=== PATIENT | male | born 1990 | race African-American/Black ===

== ENCOUNTER 2022-04-26 11:30 | Emergency (ER) | payer SELFPAY ==
[2022-04-26] MEDS ORDERED: dexAMETHasone 10 MG/ML VIAL ONE (12:11)
[2022-04-26] MEDS ORDERED: HYDROCODONE/APAP 10/325 TAB ONE (12:12)
[2022-04-26] MEDS ORDERED: KETOROLAC 30 MG/ML INJ ONE (12:12)
--- NOTE | 2022-04-26 12:53 | RAD REPORT ---
EXAM DESCRIPTION: RAD - Lumbar Spine 3 Views - 04/26/2022 12:47 pm CLINICAL HISTORY: Back pain FINDINGS: No fracture or dislocation is seen. Minimal posterior subluxation of L5 on S1 Otherwise, unremarkable exam
--- NOTE | 2022-04-26 13:13 | ER ---
Nurse's Notes [facility] Name: Rafy Mcneill Jr Age: 31 yrs Sex: Male : 1990 Arrival Date: 04/26/2022 Time: 11:33 Bed 14 Private MD: Diagnosis: Low back pain;Unspecified symptoms and signs involving the musculoskeletal system Presentation: 04/26 11:47 Chief complaint: Patient states: tweaked my back on Tuesday while playing baseball, iw feels a pinch in my lower back , can;t bend at waist, hard to pick anything up , left is hurting more than right. Coronavirus screen: At this time, the client does not indicate any symptoms associated with coronavirus-19. Ebola Screen: Patient negative for fever greater than or equal to 101.5 degrees Fahrenheit, and additional compatible Ebola Virus Disease symptoms Patient denies exposure to infectious person. Patient denies travel to an Ebola-affected area in the 21 days before illness onset. No symptoms or risks identified at this time. Initial Sepsis Screen: Does the patient meet any 2 criteria? No. Patient's initial sepsis screen is negative. Does the patient have a suspected source of infection? No. Patient's initial sepsis screen is negative. Risk Assessment: Do you want to hurt yourself or someone else? Patient reports no desire to harm self or others. Onset of symptoms was April 24, 2022. 11:47 Method Of Arrival: Ambulatory iw 11:47 Acuity: ADÁN 3 iw Historical: - Allergies: 11:49 No Known Allergies; iw - Home Meds: 11:49 None [Active]; iw - PMHx: 11:49 None; iw - PSHx: 11:49 right thumb; iw - Immunization history:: Adult Immunizations Client reports receiving the 2nd dose of the Covid vaccine. - Social history:: Smoking status: Reported history of juuling and/or vaping. - Family history:: not pertinent. Screenin:03 [facility] ED Fall Risk Assessment (Adult) History of falling in the last 3 months, ph including since admission No falls in past 3 months (0 pts) Confusion or Disorientation No (0 pts) Intoxicated or Sedated No (0 pts) Impaired Gait No (0 pts) Mobility Assist Device Used No (0 pt) Altered Elimination No (0 pt) Score/Fall Risk Level 0 - 2 = Low Risk Oriented to surroundings, Maintained a safe environment, Hourly rounding (assess needs \T\ fall precautionary measures) done. Abuse screen: Denies threats or abuse. Denies injuries from another. Nutritional screening: No deficits noted. Tuberculosis screening: No symptoms or risk factors identified. Assessment: 12:14 General: Appears in no apparent distress. comfortable, well groomed, Behavior is calm, ph cooperative, appropriate for age. Pain: Complains of pain in lumbar area Pain radiates to left low back. Neuro: Level of Consciousness is awake, alert, obeys commands, Oriented to person, place, time, situation. Cardiovascular: Capillary refill < 3 seconds in bilateral fingers Patient's skin is warm and dry. Respiratory: Airway is patent Respiratory effort is even, unlabored. Derm: Skin is healthy with good turgor, Skin is pink, warm \T\ dry. Musculoskeletal: Circulation, motion, and sensation intact. Range of motion: intact in all extremities. Vital Signs: 11:47 BP 147 / 75; Pulse 62; Resp 16; Pulse Ox 100% on R/A; Weight 104.33 kg; Height 6 ft. 3 iw in. ; Pain 9/10; 11:47 Body Mass Index 28.75 (104.33 kg, 190.5 cm) iw 11:47 Pain Scale: Adult iw ED Course: 11:33 Patient arrived in ED. rg4 11:40 Phoenix Castro MD is Attending Physician. becky 11:49 Triage completed. iw 11:50 Arm band placed on. iw 11:58 Halima Monet, RN is Primary Nurse. ph 12:04 Patient has correct armband on for positive identification. Bed in low position. Call ph light in reach. Side rails up X 1. Pulse ox on. NIBP on. 12:48 Lumbar Spine (3 Views) XRAY In Process Unspecified. EDMS 13:12 Giovany Marmolejo MD is Referral Physician. becky 13:47 No provider procedures requiring assistance completed. Patient did not have IV access ph during this emergency room visit. Administered Medications: 13:03 Not Given (Duplicate Order): Ketorolac IM 60 mg IM once becky 13:03 Not Given (Duplicate Order): Dexamethasone IM 10 mg IM once becky 13:25 Drug: Goodrich PO 10 mg-325 mg 1 tabs Route: PO; ph 13:46 Drug: Dexamethasone PO 4 mg Route: PO; ph 13:46 Drug: Ibuprofen PO 800 mg Route: PO; ph Medication: 12:04 VIS not applicable for this client. ph Outcome: 13:12 Discharge ordered by . becky 13:47 Discharged to home ambulatory. ph 13:47 Condition: good 13:47 Discharge instructions given to patient, Instructed on discharge instructions, follow up and referral plans. medication usage, Demonstrated understanding of instructions, follow-up care, medications, Prescriptions given X 3. 13:47 Patient left the ED. ph Signatures: Dispatcher [employer] EDTN Phoenix Castro MD MD cha Williams, Irene, RN Halima Padgett RN RN ph Garcia, Rubi rg4
--- NOTE | 2022-04-26 13:13 | EDPHYS ---
Physician Documentation [facility] Name: Rafy Mcneill Jr Age: 31 yrs Sex: Male : 1990 Arrival Date: 04/26/2022 Time: 11:33 Bed 14 Private MD: Phoenix Jade HPI: 04/26 13:06 This 31 yrs old Black Male presents to ER via Ambulatory with complaints of Back Pain. becky 13:06 The patient presents with pain that is acute. The symptoms are located in the low back. becky Onset: The symptoms/episode began/occurred 3 day(s) ago. The pain does not radiate. Associated signs and symptoms: The patient has no apparent associated signs or symptoms. Modifying factors: The patient symptoms are alleviated by remaining still, rest, the patient symptoms are aggravated by any movement, bending, lifting, movement, standing. Historical: - Allergies: 11:49 No Known Allergies; iw - Home Meds: 11:49 None [Active]; iw - PMHx: 11:49 None; iw - PSHx: 11:49 right thumb; iw - Immunization history:: Adult Immunizations Client reports receiving the 2nd dose of the Covid vaccine. - Social history:: Smoking status: Reported history of juuling and/or vaping. - Family history:: not pertinent. ROS: 13:06 Constitutional: Negative for fever, chills, and weight loss, Eyes: Negative for injury, becky pain, redness, and discharge, ENT: Negative for injury, pain, and discharge, Neck: Negative for injury, pain, and swelling, Cardiovascular: Negative for chest pain, palpitations, and edema, Respiratory: Negative for shortness of breath, cough, wheezing, and pleuritic chest pain, Abdomen/GI: Negative for abdominal pain, nausea, vomiting, diarrhea, and constipation, : Negative for injury, bleeding, discharge, and swelling, MS/Extremity: Negative for injury and deformity, Skin: Negative for injury, rash, and discoloration, Neuro: Negative for headache, weakness, numbness, tingling, and seizure, Psych: Negative for depression, anxiety, suicide ideation, homicidal ideation, and hallucinations, Allergy/Immunology: Negative for hives, rash, and allergies, Endocrine: Negative for neck swelling, polydipsia, polyuria, polyphagia, and marked weight changes, Hematologic/Lymphatic: Negative for swollen nodes, abnormal bleeding, and unusual bruising. 13:06 Back: Positive for decreased range of motion, pain at rest, pain with movement, of the lumbar area. Exam: 13:06 Constitutional: This is a well developed, well nourished patient who is awake, alert, becky and in no acute distress. Head/Face: Normocephalic, atraumatic. Eyes: Pupils equal round and reactive to light, extra-ocular motions intact. Lids and lashes normal. Conjunctiva and sclera are non-icteric and not injected. Cornea within normal limits. Periorbital areas with no swelling, redness, or edema. ENT: Nares patent. No nasal discharge, no septal abnormalities noted. Tympanic membranes are normal and external auditory canals are clear. Oropharynx with no redness, swelling, or masses, exudates, or evidence of obstruction, uvula midline. Mucous membranes moist. Neck: Trachea midline, no thyromegaly or masses palpated, and no cervical lymphadenopathy. Supple, full range of motion without nuchal rigidity, or vertebral point tenderness. No Meningismus. Chest/axilla: Normal chest wall appearance and motion. Nontender with no deformity. No lesions are appreciated. Cardiovascular: Regular rate and rhythm with a normal S1 and S2. No gallops, murmurs, or rubs. Normal PMI, no JVD. No pulse deficits. Respiratory: Lungs have equal breath sounds bilaterally, clear to auscultation and percussion. No rales, rhonchi or wheezes noted. No increased work of breathing, no retractions or nasal flaring. Abdomen/GI: Soft, non-tender, with normal bowel sounds. No distension or tympany. No guarding or rebound. No evidence of tenderness throughout. Male : Normal genitalia with no discharge or lesions. Skin: Warm, dry with normal turgor. Normal color with no rashes, no lesions, and no evidence of cellulitis. MS/ Extremity: Pulses equal, no cyanosis. Neurovascular intact. Full, normal range of motion. Neuro: Awake and alert, GCS 15, oriented to person, place, time, and situation. Cranial nerves II-XII grossly intact. Motor strength 5/5 in all extremities. Sensory grossly intact. Cerebellar exam normal. Normal gait. Psych: Awake, alert, with orientation to person, place and time. Behavior, mood, and affect are within normal limits. 13:06 Back: pain, that is mild, ROM is normal, normal spinal alignment noted, CVA tenderness, is absent, muscle spasm, is not present. Vital Signs: 11:47 BP 147 / 75; Pulse 62; Resp 16; Pulse Ox 100% on R/A; Weight 104.33 kg; Height 6 ft. 3 iw in. ; Pain 9/10; 11:47 Body Mass Index 28.75 (104.33 kg, 190.5 cm) iw 11:47 Pain Scale: Adult iw MDM: 11:40 Patient medically screened. becky 12:02 Patient medically screened. becky 13:06 Differential diagnosis: Fatigue Fracture Ligament Injury ruptured disc, Scoliosis becky spinal injury, sprain, vertebral fracture. Data reviewed: vital signs, nurses notes, radiologic studies, plain films. Consideration of Admission/Observation Escalation of care including admission/observation considered. Test considered but Not performed: MRI: NO MRI LUMBAR PINE. 04/26 12:04 Order name: Lumbar Spine (3 Views) XRAY; Complete Time: 12:57 becky Administered Medications: 13:03 Not Given (Duplicate Order): Ketorolac IM 60 mg IM once becky 13:03 Not Given (Duplicate Order): Dexamethasone IM 10 mg IM once becky 13:25 Drug: Portia PO 10 mg-325 mg 1 tabs Route: PO; ph 13:46 Drug: Dexamethasone PO 4 mg Route: PO; ph 13:46 Drug: Ibuprofen PO 800 mg Route: PO; ph Disposition Summary: 04/26/22 13:12 Discharge Ordered Location: Home becky Problem: new becky Symptoms: have improved becky Condition: Stable becky Diagnosis - Low back pain becky - Unspecified symptoms and signs involving the musculoskeletal system becky Followup: becky - With: Private Physician - When: 2 - 3 days - Reason: Recheck today's complaints, Continuance of care, Re-evaluation by your physician Followup: becky - With: Giovany Marmolejo MD - When: 2 - 3 days - Reason: Recheck today's complaints, Re-evaluation by your physician Discharge Instructions: - Discharge Summary Sheet becky - Acute Back Pain, Adult becky - Musculoskeletal Pain becky Forms: - Medication Reconciliation Form becky - Thank You Letter becky - Antibiotic Education becky - Prescription Opioid Use becky - Work release form eb Prescriptions: - Ibuprofen 600 mg Oral Tablet - take 1 tablet by ORAL route every 6 hours As needed take with food; 30 tablet; becky Refills: 0, Product Selection Permitted - Medrol (Jerome) 4 mg Oral Tablets, Dose Pack - take 1 tablet by ORAL route as directed - follow package instructions; 1 becky packet; Refills: 0, Product Selection Permitted - Cyclobenzaprine 5 mg Oral Tablet - take 1 tablet by ORAL route 3 times per day As needed; 15 tablet; Refills: 0, becky Product Selection Permitted Signatures: Dispatcher [employer] Phoenix Morillo MD MD cha Williams, Irene, RN RN iw Halima Monet RN RN ph
[2022-04-26] MEDS ORDERED: dexAMETHasone 4 MG TAB ONE (13:44)
[2022-04-26] MEDS ORDERED: IBUPROFEN 400 MG TAB ONE (13:44)
[2022-04-26 14:41] VITALS: BP 147/75; O2SAT 100
== END 2022-04-26 13:47 | disposition home or self-care (01) ==
LOC: ER 11:30
DX: M54.50 Low back pain, unspecified (principal); R29.91 Unspecified symptoms and signs involving the musculoskeletal system
CPT/HCPCS: 72100; J1100; J8540

== ENCOUNTER 2022-04-30 19:19 | Emergency (ER) | payer SELFPAY ==
[2022-04-30 20:04] VITALS: BP 132/82; TEMP 98.8; O2SAT 99
--- NOTE | 2022-04-30 21:24 | EDPHYS ---
Physician Documentation [facility] Name: Rafy Mcneill Jr Age: 31 yrs Sex: Male : 1990 Arrival Date: 04/30/2022 Time: 19:22 Bed 11 Private MD: ED Physician Rogelio Mason HPI: 04/30 20:20 This 31 yrs old Black Male presents to ER via Ambulatory with complaints of Back Pain. kb 20:20 The patient presents with pain that is acute. The symptoms are located in the left low kb back. Onset: The symptoms/episode began/occurred 7 day(s) ago. The pain does not radiate. Associated signs and symptoms: The patient has no apparent associated signs or symptoms. The problem was sustained playing sports, baseball. Modifying factors: The patient symptoms are alleviated by nothing, the patient symptoms are aggravated by any movement. Severity of symptoms: At their worst the symptoms were mild, moderate, in the emergency department the symptoms are unchanged. The patient has not experienced similar symptoms in the past. The patient has been recently seen at the [facility] Emergency Department, this week. 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 Was seen here and given a work note to return yesterday. States he thinks he still needs a few days for his back to heal so he didn't go back to work and needs a new note. Historical: - Allergies: 19:47 No Known Allergies; aa9 - PSHx: 19:47 right thumb; aa9 - Immunization history:: Adult Immunizations unknown. - Social history:: Smoking status: unknown. ROS: 20:19 Constitutional: Negative for fever, chills, and weight loss. kb 20:19 Back: Positive for pain at rest, pain with movement, of the left low back. 20:19 All other systems are negative. Exam: 20:19 Constitutional: This is a well developed, well nourished patient who is awake, alert, kb and in no acute distress. Head/Face: Normocephalic, atraumatic. ENT: Moist Mucous membranes Cardiovascular: Regular rate and rhythm with a normal S1 and S2. No gallops, murmurs, or rubs. No pulse deficits. Respiratory: Respirations even and unlabored. No increased work of breathing. Talking in full sentences Abdomen/GI: Soft, non-tender. No distention Skin: Warm, dry with normal turgor. Normal color. MS/ Extremity: Pulses equal, no cyanosis. Neurovascular intact. Full, normal range of motion. Neuro: Awake and alert, GCS 15, oriented to person, place, time, and situation. Moves all extremities. Normal gait. 20:19 Back: pain, that is mild, that is moderate, ROM is painful, with all movement, CVA tenderness, is absent. 20:21 Neuro: Exam negative for acute changes, Orientation: is normal. kb Vital Signs: 19:52 BP 132 / 82; Pulse 86; Resp 17; Temp 98.8; Pulse Ox 99% on R/A; aa9 MDM: 19:42 Patient medically screened. kb 20:19 Differential diagnosis: sprain, strain, pinched nerve. Data reviewed: vital signs, kb nurses notes. Counseling: I had a detailed discussion with the patient and/or guardian regarding: the historical points, exam findings, and any diagnostic results supporting the discharge/admit diagnosis, the need for outpatient follow up, a family practitioner, to return to the emergency department if symptoms worsen or persist or if there are any questions or concerns that arise at home. Administered Medications: No medications were administered Disposition: 05/01 07:14 Co-signature as Attending Physician, Rogelio Mason MD I reviewed the patient's care sp4 provided by the Advanced Practice Provider and agree with the diagnosis and treatment plan. Disposition Summary: 04/30/22 19:43 Discharge Ordered Location: Home kb Condition: Stable kb Diagnosis - Encounter for issue of other medical certificate - work note kb Followup: kb - With: Emergency Department - When: As needed - Reason: Worsening of condition Followup: kb - With: Private Physician - When: 2 - 3 days - Reason: Recheck today's complaints, Continuance of care, Re-evaluation by your physician Discharge Instructions: - Discharge Summary Sheet kb Forms: - Work release form kb - Medication Reconciliation Form kb - Thank You Letter kb - Antibiotic Education kb - Prescription Opioid Use kb Signatures: Tia Graf FNP-C FNP-Ckb Avalos, Aylin, RN RN aa9 Rogelio Mason MD MD sp4
--- NOTE | 2022-04-30 21:24 | ER ---
Nurse's Notes [facility] Name: Rafy Mcneill Jr Age: 31 yrs Sex: Male : 1990 Arrival Date: 04/30/2022 Time: 19:22 Bed 11 Private MD: Diagnosis: Encounter for issue of other medical certificate-work note Presentation: 04/30 19:46 Chief complaint: Patient states: I was here Tuesday for a left shoulder injury, I just aa9 need a new work note because I didn't go back to work. Coronavirus screen: Vaccine status: Patient reports being unvaccinated. Ebola Screen: No symptoms or risks identified at this time. Initial Sepsis Screen: Does the patient meet any 2 criteria? No. Patient's initial sepsis screen is negative. Does the patient have a suspected source of infection? No. Patient's initial sepsis screen is negative. Risk Assessment: Do you want to hurt yourself or someone else? Patient reports no desire to harm self or others. Onset of symptoms was April 30, 2022. 19:46 Method Of Arrival: Ambulatory aa9 19:46 Acuity: ADÁN 5 aa9 Triage Assessment: 19:47 General: Appears in no apparent distress. comfortable, Behavior is calm, cooperative. aa9 Pain: Denies pain. Neuro: No deficits noted. Respiratory: No deficits noted. Musculoskeletal: No deficits noted. Historical: - Allergies: 19:47 No Known Allergies; aa9 - PSHx: 19:47 right thumb; aa9 - Immunization history:: Adult Immunizations unknown. - Social history:: Smoking status: unknown. Screenin:48 [facility] ED Fall Risk Assessment (Adult) History of falling in the last 3 months, aa9 including since admission No falls in past 3 months (0 pts) Confusion or Disorientation No (0 pts) Intoxicated or Sedated No (0 pts) Impaired Gait Yes (1 pt) Mobility Assist Device Used Yes (1 pt) Altered Elimination No (0 pt) Score/Fall Risk Level 3 or more points = High Risk Oriented to surroundings, Educated pt \T\ family on fall prevention, incl call for assistance when getting out of bed, Assessed \T\ reinforced patient's understanding of fall precautions. Abuse screen: Denies threats or abuse. Denies injuries from another. Nutritional screening: No deficits noted. Tuberculosis screening: No symptoms or risk factors identified. Assessment: 19:52 Reassessment: Patient appears in no apparent distress at this time. Patient is alert, aa9 oriented x 3, equal unlabored respirations, skin warm/dry/pink. Patient denies pain at this time. 19:52 Neuro: Level of Consciousness is awake, alert, obeys commands. aa9 Vital Signs: 19:52 BP 132 / 82; Pulse 86; Resp 17; Temp 98.8; Pulse Ox 99% on R/A; aa9 ED Course: 19:22 Patient arrived in ED. ja2 19:23 Tia Graf FNP-C [facility]. kb 19:23 Rogelio Mason MD is Attending Physician. kb 19:38 Sintia Romano, RN is Primary Nurse. aa9 19:47 Triage completed. aa9 19:52 Arm band placed on. aa9 19:52 Patient has correct armband on for positive identification. aa9 19:52 No provider procedures requiring assistance completed. Patient did not have IV access aa9 during this emergency room visit. Administered Medications: No medications were administered Medication: 19:53 VIS not applicable for this client. aa9 Outcome: 19:43 Discharge ordered by . kb 19:52 Discharged to home ambulatory. aa9 19:52 Condition: stable 19:52 Discharge instructions given to patient, Instructed on discharge instructions, follow up and referral plans. Demonstrated understanding of instructions, follow-up care. 19:53 Patient left the ED. aa9 Signatures: Tia Graf FNP-C TRUCKER-Seth Fanssdel guillory Sintia Romano, RN RN aa9
== END 2022-04-30 19:53 | disposition home or self-care (01) ==
LOC: ER 19:19
DX: Z02.79 Encounter for issue of other medical certificate (principal)
CPT/HCPCS: 99281